=== PATIENT | male | born 1995 | race African-American/Black ===

== ENCOUNTER 2019-06-11 08:04 | Emergency (ER) | payer SELFPAY ==
[2019-06-11 08:10] VITALS: BP 125/68; PULSE 51; TEMP 98.6; BMI 34.7
--- NOTE | 2019-06-11 08:32 | PDOC ---
History of Present Illness - General Chief Complaint: Ear Problem Stated Complaint: Ear Problem Time Seen by Provider: 06/11/19 08:11 History Source: Patient Exam Limitations: No Limitations Past History - Travel Traveled outside of the country in the last 30 days: No Close contact w/someone who was outside of country & ill: No - Past Medical History Allergies/Adverse Reactions: Allergies Allergy/AdvReac Type Severity Reaction Status Date / Time No Known Allergies Allergy Verified 06/11/19 08:10 Home Medications: Ambulatory Orders Ofloxacin Otic [Floxin Otic -] 10 drop OT DAILY #200 drops 06/11/19 COPD: No - Immunization History Immunization Up to Date: Yes - Suicide/Smoking/Psychosocial Hx Smoking History: Current every day smoker Number of Cigarettes Smoked Daily: 5 Information on smoking cessation initiated: No Hx Alcohol Use: Yes (socially) Drug/Substance Use Hx: Yes (marijuana) Substance Use Type: None Review of Systems - Review of Systems Able to Perform ROS?: Yes Comments:: 06/11/19 08:26 CONSTITUTIONAL: Absent: fever, chills, diaphoresis, generalized weakness, malaise, loss of appetite HEENT: Present: ear pain Absent: rhinorrhea, nasal congestion, throat pain, throat swelling, difficulty swallowing, mouth swelling, eye pain, visual Changes CARDIOVASCULAR: Absent: chest pain, loss of consciousness, palpitations, irregular heart rate, peripheral edema RESPIRATORY: Absent: cough, shortness of breath, dyspnea with exertion, orthopnea, wheezing, stridor, hemoptysis GASTROINTESTINAL: Absent: abdominal pain, abdominal distension, nausea, vomiting, diarrhea, constipation, melena, hematochezia GENITOURINARY: Absent: dysuria, frequency, urgency, hesitancy, hematuria, flank pain, genital pain MUSCULOSKELETAL: Absent: myalgia, arthralgia, joint swelling SKIN: Absent: rash, itching, pallor HEMATOLOGIC/IMMUNOLOGIC: Absent: easy bleeding, easy bruising, lymphadenopathy, frequent infections ENDOCRINE: Absent: unexplained weight gain, unexplained weight loss, heat intolerance, cold intolerance NEUROLOGIC: Absent: headache, focal weakness or paresthesias, dizziness, unsteady gait, seizure, mental status changes, bladder or bowel incontinence PSYCHIATRIC: Absent: anxiety, depression, suicidal or homicidal ideation, hallucinations. Is the patient limited [place] proficient: No *Physical Exam - Vital Signs Last Vital Signs Temp Pulse Resp BP Pulse Ox 98.6 F 51 L 16 125/68 97 06/11/19 08:06 06/11/19 08:06 06/11/19 08:06 06/11/19 08:06 06/11/19 08:06 - Physical Exam Comments: 06/11/19 08:27 GENERAL: The patient is awake, alert, and fully oriented, in no acute distress. HEAD: Normal with no signs of trauma. EYES: Pupils equal, round and reactive to light, extraocular movements intact, sclera anicteric, conjunctiva clear. HEENT: No nasal congestion or rhinorrhea. No sinus Tenderness. Mucous membranes are moist. No tonsillar erythema, exudate or edema. Uvula is midline. No TM bulging, dullness or erythema. Scarring to both TM's b/l. The ear canals b/l are inflamed with yellowish dishcharge. TTP of both pinna and tragus. NECK: Neck is supple. No adenopathy. No meningismus. No stridor. EXTREMITIES: Normal range of motion, no edema. NEUROLOGICAL: Normal speech, normal gait. PSYCH: Normal mood, normal affect. SKIN: Warm, Dry, normal turgor, no rashes or lesions noted. Medical Decision Making - Medical Decision Making 06/11/19 08:28 The patient is a 23-year-old male in no past medical history who presents to the ER today for bilateral ear pain, worse on the right 1 week. He states that he has tried [id number] Motrin with no relief of his symptoms. Denies swimming. Denies fevers, chills, sore throat, runny nose, congestion and cough A/P: Otitis externa On exam bilateral inflamed ear canals with yellowish discharge. Tender tragus bilaterally Consistent with bilateral otitis externa. We will start ofloxacin drops. Refer to PCP and ENT I discussed the physical exam findings, ancillary test results and final diagnoses with the patient. I answered all of the patient's questions. The patient was satisfied with the care received and felt comfortable with the discharge plan and treatment plan. The Patient agrees to follow up with the primary care physician/specialist within 24-72 hours. Return precautions were given. *DC/Admit/Observation/Transfer Diagnosis at time of Disposition: Otitis externa Qualifiers: Otitis externa type: unspecified type Chronicity: acute Laterality: bilateral Qualified Code(s): H60.503 - Unspecified acute noninfective otitis externa, bilateral - Discharge Dispostion Disposition: HOME Condition at time of disposition: Stable Decision to Admit order: No - Referrals Referrals: Casper Becker MD [Staff Physician] - Jeyson Allen MD [Staff Physician] - - Patient Instructions Printed Discharge Instructions: DI for Otitis Externa Additional Instructions: You have otitis externa or an infection of the ear canals. Please use the eardrops as directed. Please keep the ears dry, you may use swimmer's plugs in the shower to keep water out of them Do not put any Q-tips in the ear Please follow-up with ENT. A referral has been provided for you. Follow-up in 3-5 days. Return to the ER for worsening pain, fever, hearing loss, or if you have any changes in your symptoms. - Post Discharge Activity Forms/Work/School Notes: Back to Work
== END 2019-06-11 08:35 | disposition home or self-care (01) ==
LOC: JERFT 08:04
DX: H60.503 Unspecified acute noninfective otitis externa, bilateral (principal); F17.210 Nicotine dependence, cigarettes, uncomplicated
CPT/HCPCS: 99281-25

== ENCOUNTER 2019-11-09 20:56 | Emergency (ER) | payer OTHER ==
[2019-11-09 21:41] VITALS: BP 137/57; PULSE 81; TEMP 97.7; BMI 32.3
--- NOTE | 2019-11-09 21:41 | PDOC ---
Rapid Medical Evaluation Chief Complaint: Pain Time Seen by Provider: 11/09/19 21:37 Medical Evaluation: Allergies Allergy/AdvReac Type Severity Reaction Status Date / Time No Known Allergies Allergy Verified 11/09/19 21:37 11/09/19 21:39 I have performed a brief in-person evaluation of this patient. The patient presents with a chief complaint of: STD testing as he had unprotected sex 3 weeks ago. Denies any symptoms. pt cannot wait for HIV results and will defer testing for HIV Pertinent physical exam findings: A&o x 3 I have ordered the following: RPR,CHL, gono test The patient will proceed to the ED for further evaluation. Discharge Disposition - Diagnosis Screen for sexually transmitted diseases - Discharge Dispostion Condition at time of disposition: Stable - Referrals - Patient Instructions - Post Discharge Activity
[2019-11-09] MEDS ORDERED: AZITHROMYCIN 500 MG TABLET PO ONE (22:41)
--- NOTE | 2019-11-09 22:45 | PDOC ---
History of Present Illness - General Chief Complaint: HIV Testing Stated Complaint: PAIN Time Seen by Provider: 11/09/19 21:37 History Source: Patient - History of Present Illness Initial Comments: 11/09/19 22:44 24-year-old male complaining of "I would like to be treated for STD. I was having unprotected sex. "Denies testicular pain, dysuria, penile discharge, fever/chills.Patient refused HIV testing at this time. Past History - Past Medical History Allergies/Adverse Reactions: Allergies Allergy/AdvReac Type Severity Reaction Status Date / Time No Known Allergies Allergy Verified 11/09/19 21:41 Home Medications: Ambulatory Orders Ofloxacin Otic [Floxin Otic -] 10 drop OT DAILY #200 drops 06/11/19 COPD: No - Immunization History Immunization Up to Date: Yes - Psycho Social/Smoking Cessation Hx Smoking History: Current every day smoker Have you smoked in the past 12 months: Yes Number of Cigarettes Smoked Daily: 5 Information on smoking cessation initiated: No Hx Alcohol Use: No Drug/Substance Use Hx: Yes (MARIJUANA) Substance Use Type: None *Physical Exam - Vital Signs Last Vital Signs Temp Pulse Resp BP Pulse Ox 97.7 F 81 17 137/57 L 97 11/09/19 21:38 11/09/19 21:38 11/09/19 21:38 11/09/19 21:38 11/09/19 21:38 - Physical Exam General Appearance: Yes: Appropriately Dressed Respiratory/Chest: positive: Lungs Clear, Normal Breath Sounds Neurologic: positive: Fully Oriented, Alert ED Progress Note - Progress Note Progress Note: A: STI P: GC RPR Ceftriaxone azithromycin Discharge - Discharge Information Problems reviewed: Yes Clinical Impression/Diagnosis: Screen for sexually transmitted diseases Condition: Stable Disposition: HOME - Follow up/Referral - Patient Discharge Instructions Patient Printed Discharge Instructions: Facts About Sexually Transmitted Infections - Post Discharge Activity Work/Back to School Note: Back to Work
[2019-11-09] MEDS ORDERED: AZITHROMYCIN 500 MG TABLET ONE (22:48)
== END 2019-11-09 22:57 | disposition home or self-care (01) ==
LOC: JERFT 20:56
DX: Z11.4 Encounter for screening for human immunodeficiency virus [HIV] (principal)
CPT/HCPCS: 36415; 86593; 87491; 87591; 99281-25